=== PATIENT | male | born 1990 | race Two or more races ===

== ENCOUNTER 2017-10-15 17:31 | Emergency (ER) | payer BC ==
[~2017-10-15] VITALS: Ht 167.6 cm; Wt 102.3 kg
[2017-10-15 18:43] LABS: HEMATOCRIT 43.8 % (38.0-50.0); HEMOGLOBIN 14.6 G/DL (12.5-16.6); MCH 28.9 PG (29.0-34.0); MCHC 33.3 G/DL (30.0-36.0); MCV 86.6 FL (86-99); PLATELET COUNT 275 K/uL (156-360); RBC DIS.WIDTH-CV 12.2 % (11.8-14.6); RBC DIS.WIDTH-SD 38.5 % (39-53); RED BLOOD COUNT 5.06 M/uL (4.00-5.50); WHITE BLOOD COUNT 8.1 K/uL (4.1-10.2)
[2017-10-15 19:00] LABS: CHLORIDE 106 mEq/L (99-109); POTASSIUM 3.6 mEq/L (3.7-5.4); SODIUM 142 mEq/L (136-147)
[2017-10-15 19:02] LABS: GLUCOSE 124 mg/dL (70-99)
[2017-10-15 19:06] LABS: CREATININE 0.9 mg/dL (0.6-1.3)
[2017-10-15 19:07] LABS: UREA NITROGEN (BUN) 14 mg/dL (9-23)
[2017-10-15 19:08] LABS: TROP-I INTERPRETATION NEGATIVE; TROPONIN-I < 0.01 ng/mL (0.0-0.30)
[2017-10-15 19:14] LABS: GFR ESTIMATE (CALCULATED) > 59 mL/min/ (58.99-99999)
[2017-10-15] MEDS ORDERED: MOTRIN600 MG PO (19:51)
[2017-10-15] MEDS ORDERED: FLEXERIL10 MG PO (19:51)
[2017-10-15 20:21] VITALS: BP 127/78
== END 2017-10-15 20:23 | disposition home or self-care (01) ==
LOC: RME 17:31 → EME 17:31 → RME 20:23
DX: S39.012A Strain of muscle, fascia and tendon of lower back, initial encounter (principal); X50.0XXA Overexertion from strenuous movement or load, initial encounter; Y99.0 Civilian activity done for income or pay
CPT/HCPCS: 71046; 80048; 84484; 85027; 93005; 99281; 99285; J1885